=== PATIENT | female | born 1990 | race Caucasian/White ===

== ENCOUNTER → 2017-12-11 | Outpatient (REF) ==
[~2017-12-11] MED LIST: AMBIEN CR 12.12.5 MG; BUPROBAN150 MG; INDERAL 20MG20 MG; KLONOPIN 0.5MG0.5 MG; MOTRIN 600600 MG/TAB PO; NO HOME MEDICATIONS; NORCO 325 MG-51 TAB PO; PERCOCET 325 MG1 TA2 PO; PRENATAL1 TA1 PO; SYNTHROID 0.10.15 MG PO; SYNTHROID0.05 MG/TA PO; TIROSINT100 MCG PO; TIROSINT50 MCG PO; WELLBUTRIN SR200 MG PO
== END ==
LOC: ZLAB.WCH 18:14
DX: Z01.89 Encounter for other specified special examinations (principal)

== ENCOUNTER → 2019-03-03 | Outpatient (CLI) | payer BC | LOC: COL.LAB 12:42 | DX: N83.02 Follicular cyst of left ovary (principal); R19.7 Diarrhea, unspecified | CPT/HCPCS: Q9967 ==

== ENCOUNTER → 2021-03-21 | Outpatient (REF) ==
[2021-03-21 16:50] LABS: CLOSTRIDIUM DIFF A/B NEG; CLOSTRIDIUM DIFF A/B INTERP No C.diff present
== END ==
LOC: ZLAB.WCH 15:41
DX: Z01.89 Encounter for other specified special examinations (principal)